=== PATIENT | male | born 1960 | race Caucasian/White ===

== ENCOUNTER 2021-09-24 14:41 | Inpatient (IN) | payer MEDICAID ==
[~2021-09-24] VITALS: Ht 154.9 cm; Wt 68.0 kg
[~2021-09-24 14:41] MED LIST: BALANCED SALT IRRIG SOLN 15ML ONE; BUPIVACAINE HCL/PF 0.75% (7.5MG/ML) 10ML ONE; CIPROFLOXACIN 0.3% OPHTH SOLN 2.5ML ONE; LIDOCAINE HCL/PF 2% 20 MG/ML 10ML VIAL ONE; NEO/POLYMYX B SULF/DEXAMETH OPHTH OINT 3.5GM ONE; PREDNISOLONE ACETATE 1% OPHTH DROPS 5ML ONE
[2021-09-24] MEDS ORDERED: LATANOPROST 0.005% OPHTH DROPS 2.5ML BOTHEYE STA (18:58)
[2021-09-24] MEDS ORDERED: DORZOLAM/TIMOLOL 2.23/0.68% OPHTH DROPS 10ML BOTHEYE STA (18:58)
[2021-09-24] MEDS ORDERED: ACETAZOLAMIDE SODIUM 500MG/VIAL IV ONE (19:00)
[2021-09-24 19:33] LABS: BASOPHILS % 1.7 % (0.0-2.0); EOSINOPHILS % 7.7 % (0.0-5.0); HEMATOCRIT. 32.3 % (42.0-52.0); HEMOGLOBIN. 10.2 g/dL (14.0-18.0); LYMPHOCYTES % 26.4 % (20.0-50.0); MEAN CORPUSCULAR HEMOGLOBIN 27.1 pg (28.0-32.0); MEAN CORPUSCULAR VOLUME 85.8 fL (80.0-94.0); MONOCYTES % 12.9 % (2.0-8.0); NEUTROPHILS % 51.3 % (40.0-76.0); PLATELET 147 x1000/uL (130-400); RED BLOOD CELL COUNT 3.76 mill/uL (4.7-6.1); RED CELL DISTRIBUTION WIDTH 19.2 % (11.6-14.6)
[2021-09-24 19:41] LABS: INR 1.2; PROTHROMBIN TIME 12.9 sec (9.6-11.0)
[2021-09-24 19:44] LABS: CHLORIDE 96 mEq/L (98-107)
[2021-09-25] MEDS ORDERED: MIDAZOLAM HCL 2 MG/2 ML VIAL ONE (00:21)
[2021-09-25] MEDS ORDERED: DEXAMETHASONE 4MG/ML 1ML VIAL ONE (00:36)
[2021-09-25] MEDS ORDERED: LIDOCAINE HCL 1% 20ML VIAL (Pyxis) INJ ONE (00:36)
[2021-09-25] MEDS ORDERED: ONDANSETRON HCL 4MG/2ML INJ ONE (00:36)
[2021-09-25] MEDS ORDERED: FENTANYL CITRATE/PF 50MCG/ML 2ML VIAL ONE (00:41)
[2021-09-25] MEDS ORDERED: ATROPINE SULFATE 1MG/10ML SYR IV PRN (01:00)
[2021-09-25] MEDS ORDERED: FENTANYL CITRATE/PF 50MCG/ML 2ML VIAL IV PRN (01:00)
[2021-09-25 02:15] VITALS: BP 139/63
[2021-09-25 04:00] VITALS: BP 148/51
[2021-09-25 08:00] VITALS: BP 159/60
[2021-09-25 12:00] VITALS: BP 160/64
[2021-09-25 16:00] VITALS: BP 158/59
[2021-09-25 16:57] LABS: HEPATITIS B SURFACE ANTIGEN NEGATIVE
[2021-09-25] MEDS ORDERED: ONDANSETRON HCL 4MG/2ML INJ IV PRN (17:15)
[2021-09-25] MEDS ORDERED: ACETAMINOPHEN 325MG TABLET PO PRN (17:15)
[2021-09-25] MEDS ORDERED: NALOXONE HCL 0.4MG/ML VIAL IV PRN (18:15)
[2021-09-25] MEDS ORDERED: MORPHINE SULFATE 2 MG/ML CPJ (NOT FOR IM USE) IV NR (18:15)
[2021-09-25] MEDS ORDERED: HYDROCODONE/APAP 7.5/325MG 1 TAB TABLET PO PRN (18:15)
[2021-09-25] MEDS ORDERED: LORAZEPAM 1MG TABLET PO PRN (18:15)
[2021-09-25] MEDS: HYDROCODONE/ACETAMINOPHEN 5/325MG TABLET PO PRN (18:19)
[2021-09-25 20:00] VITALS: BP 144/58
[2021-09-26] VITALS: BP 157/61
[2021-09-26 04:00] VITALS: BP 154/62
[2021-09-26] MEDS: HYDROCODONE/ACETAMINOPHEN 5/325MG TABLET PO PRN (05:34)
[2021-09-26 08:09] VITALS: BP 167/58
[2021-09-26 12:00] VITALS: BP 165/66
[2021-09-26 13:12] VITALS: BP 160/66
== END 2021-09-26 16:05 | disposition home or self-care (01) | DRG 73 ==
LOC: ER 14:41 → 6EST 22:24 → EDBEDREQ 22:26 → EDBEDREQTM 22:26 → ENRESERV 09-25 00:46
PROVIDERS: ADMIT Internal Medicine; ATTEND Internal Medicine
PROC: 08133J4 Bypass Left Anterior Chamber to Sclera with Synthetic Substitute, Percutaneous Approach (ICD-10-PCS; principal; 2021-09-25)
PROC: 5A1D70Z Performance of Urinary Filtration, Intermittent, Less than 6 Hours Per Day (ICD-10-PCS; 2021-09-25)
DX: H40.52X0 Glaucoma secondary to other eye disorders, left eye, stage unspecified (principal); I12.0 Hypertensive chronic kidney disease with stage 5 chronic kidney disease or end stage renal disease; N18.6 End stage renal disease; E87.1 Hypo-osmolality and hyponatremia; E11.22 Type 2 diabetes mellitus with diabetic chronic kidney disease; E11.319 Type 2 diabetes mellitus with unspecified diabetic retinopathy without macular edema; D64.9 Anemia, unspecified; E87.8 Other disorders of electrolyte and fluid balance, not elsewhere classified; H34.12 Central retinal artery occlusion, left eye; H21.02 Hyphema, left eye; D72.819 Decreased white blood cell count, unspecified; E78.00 Pure hypercholesterolemia, unspecified; Z20.822 Contact with and (suspected) exposure to COVID-19; Z99.2 Dependence on renal dialysis
CPT/HCPCS: 36415; 80053; 82962; 85025; 86705; 86709; 86803; 86850; 86900; 87340; 87426; 99285; C1769; J1100; J1120; J2250; J2405; J3010; J3490; C1762; C1783